=== PATIENT | male | born 1965 | race African-American/Black ===

== ENCOUNTER 2018-12-30 23:12 | Emergency (ER) | payer OTHER ==
[~2018-12-30] VITALS: Ht 198.1 cm; Wt 113.8 kg
[2018-12-30 23:36] LABS: ABSOLUTE BASOPHILS 0.1 thou/uL (0.0-0.2); ABSOLUTE EOSINOPHILS 0.3 thou/uL (0.0-0.7); ABSOLUTE LYMPHOCYTES 2.7 thou/uL (0.8-5.3); ABSOLUTE MONOCYTES 0.5 thou/uL (0.0-1.2); ABSOLUTE NEUTROPHILS 3.6 thou/uL (1.6-8.1); BASOPHILS 0.9 %; HEMATOCRIT 43.7 % (42.0-52.0); HEMOGLOBIN 14.4 gm/dL (14.0-18.0); LYMPHOCYTES 37.3 %; MCH 28.7 pg (26.0-34.0); MCHC 32.9 g/dL (28.0-37.0); MCV 87.1 fL (80.0-100.0); MONOCYTES 6.9 %; MPV 7.7 fl. (7.2-11.1); NUCLEATED RBCS 0 /100WBC; PLATELET COUNT* 200 thou/uL (150-400); POLYS 50.9 %; RBC 5.02 mil/uL (4.50-6.00); RDW-CV 12.8 % (10.5-14.5); WBC 7.1 thou/uL (4.0-11.0)
[2018-12-30 23:51] LABS: ANION GAP 6 mmol/L (7-16); BUN 19 mg/dL (7-18); CALCIUM 8.7 mg/dL (8.5-10.1); CHLORIDE 105 mmol/L (98-107); CO2 29 mmol/L (21-32); CREATININE 1.2 mg/dL (0.6-1.3); GLUCOSE 156 mg/dL (70-99); POTASSIUM 4.6 mmol/L (3.5-5.1); SODIUM 140 mmol/L (136-145)
[2018-12-30 23:54] LABS: PROTIME 10.1 Seconds (9.20-11.50)
[2018-12-31 00:01] LABS: ALBUMIN 3.7 g/dL (3.4-5.0); ALKALINE PHOSPHATASE 65 U/L (46-116); LIPASE 80 U/L (73-393); NT-PRO BRAIN NAT PEPTIDE 14 pg/mL (<300); SGOT 28 U/L (15-37); SGPT 43 U/L (30-65); TOTAL BILIRUBIN 0.4 mg/dL (<0.1-1.0); TOTAL PROTEIN 7.2 g/dL (6.4-8.2); TROPONIN-I LEVEL <0.06 ng/mL (<0.06)
[2018-12-31] MEDS ORDERED: LISINOPRIL10 MG PO (02:00)
[2018-12-31 02:15] VITALS: BP 143/91
--- NOTE | 2018-12-31 15:02 | EKG ---
[place] [address] ELECTROCARDIOGRAM REPORT Name: OLY BOJORQUEZ Room: [facility]#: [id number] Admission: 12/30/18 Attend Phys: Discharge: 12/31/18 Date of : 61 Report #: [id number] THIS REPORT FOR: //name// [facility] ED Test Date: 2018-12-30 Test Time: 23:17:08 Pat Name: OLY BOJORQUEZ Department: Room: Gender: M Floor Nurse: SHERYL : 1965 Requested By: Karlene Braun Order Number: [id number] MD: Hitesh Eppersno Measurements Intervals Smoot Rate: 73 P: 32 WA: 140 QRS: 46 QRSD: 97 T: -7 QT: 383 QTc: 422 Interpretive Statements Sinus rhythm Abnormal R-wave progression, early transition Borderline T abnormalities, inferior leads No previous ECG available for comparison Electronically Signed On 12-31-2018 15:01:44 CDT by Hitesh Epperson [email or web address] <ELECTRONICALLY SIGNED> By: Hitesh Epperson MD, [facility] 12/31/18 1501 [id number] 16 Hitesh Epperson MD, FACC /EPI
[2019-01-01 02:06] LABS: GLYCOHEMOGLOBIN (HGB A1C) 6.1 % (4.8-5.6)
== END 2018-12-31 02:15 | disposition home or self-care (01) ==
LOC: M.ERS 23:12
PROVIDERS: Personal Emergency Response Attendant
DX: R07.89 Other chest pain (principal); I10 Essential (primary) hypertension; E78.00 Pure hypercholesterolemia, unspecified; E11.9 Type 2 diabetes mellitus without complications; Z91.048 Other nonmedicinal substance allergy status